=== PATIENT | female | born 1935 | race Caucasian/White ===

== ENCOUNTER 2016-06-16 14:26 | Emergency (ER) | payer MEDICARE ==
[2016-06-16 14:51] VITALS: RESP 18
[2016-06-16 16:46] LABS: CH 29.7; CHCM 33.5; HCT 42.9 % (34.0-46.0); HDW 2.56; MCH 31.2 pg (25.0-35.0); MCV 89.2 fL (80.0-100.0); Mean Platelet Volume 7.5; RBC 4.81 m/uL (3.80-5.40); RDW 13.6 % (11.5-15.5); WBC 8.7 k/uL (3.8-10.6)
[2016-06-16 16:57] LABS: ALT 24 U/L (9-52); AST 28 U/L (14-36); Alkaline Phosphatase 100 U/L (38-126); Anion Gap 10 mmol/L; Blood Urea Nitrogen 9 mg/dL (7-17); Calcium 10.5 mg/dL (8.4-10.2); Carbon Dioxide 29 mmol/L (22-30); Chloride 102 mmol/L (98-107); Glucose 94 mg/dL (74-99); Non-African American GFR(MDRD) >60 (>60 ml/min/1.73 sqM); Potassium 3.9 mmol/L (3.5-5.1); Sodium 141 mmol/L (137-145); Total Bilirubin 0.6 mg/dL (0.2-1.3); Total Protein 7.6 g/dL (6.3-8.2)
[2016-06-16 17:02] LABS: Appearance,Urine Clear (Clear); Bilirubin,Urine Negative (Negative); Glucose,Urine (UA) Negative (Negative); Ketones,Urine Negative (Negative); Leukocyte Esterase,Urine Negative (Negative); Nitrite,Urine Negative (Negative); PH, Urine 6.5 (5.0-8.0); Protein,Urine Negative (Negative); Specific Gravity,Urine 1.015 (1.001-1.035); UA Billing (MACRO vs. MICRO) CHEM; Urobilinogen,Urine <2.0 mg/dL (<2.0)
--- NOTE | 2016-06-16 17:14 | XR ---
EXAMINATION TYPE: XR Hip LT and AP Pelvis DATE OF EXAM: 06/16/2016 5:04 PM COMPARISON: NONE HISTORY: Hip pain TECHNIQUE: A single AP view of the pelvis is obtained. Two views of the left hip are obtained. FINDINGS: There is hypertrophic acetabular spurring. The pelvic ring is intact. I see no fracture no r dislocation. Sacroiliac joints appear normal. There is a right hip prosthesis. 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 No fracture seen. Spondylosis noted at L4-5.
--- NOTE | 2016-06-16 17:44 | CT ---
EXAMINATION TYPE: CT abdomen pelvis w con DATE OF EXAM: 06/16/2016 5:35 PM COMPARISON: NONE HISTORY: Left sided back and hip pain CT DLP: 410.7 mGycm Automated exposure control for dose reduction was used. TECHNIQUE: Helical acquisition of images was performed from the lung bases through the pelvis. CONTRAST: Performed without Oral Contrast and with IV Contrast, patient injected with 100 mL of Omnipaque 300. FINDINGS: The lung bases are clear of consolidation. There is mild linear density at the posterior lung bases c onsistent with scarring and subsegmental atelectasis. There is no pleural effusion. There are numerou s calcified splenic granulomata. There is no pancreatic mass. Liver shows no focal defect. Gallbladde r appears normal. Bile ducts are not dilated. There is a fusiform lower abdominal aortic aneurysm ext ending below the renal arteries that measures up to 5 cm in diameter. There is mural thrombus that me asures up to 1.5 cm in thickness. Kidneys show satisfactory contrast opacification. There is no hydronephrosis. There is no retroperito ray adenopathy. There is no ascites. There is atherosclerotic vascular calcification. Appendix is no t definitely seen. There is no sign of appendicitis. There is no ascites. There is metal artifact fro m right hip prosthesis. Bladder distends smoothly. There is no sign of a pelvic mass. I see no focal bone destruction. There is a 2 cm inguinal hernia on the left side that contains fat. There is moderate spondylosis at L4-5. There is spinal stenosis at L4-5 L3-4. 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 ATHEROSCLEROTIC VASCULAR DISEASE. SPINAL STENOSIS AT L3-4 AND L4-5. MILD SCARRING AND SUBSEGMENTAL ATELECTASIS AT THE LUNG BASES. 2 CM LEFT INGUINAL HERNIA CONTAINS OMENTAL FAT.
--- NOTE | 2016-06-16 17:53 | ED ---
General Adult HPI - General Chief complaint: Extremity Injury, Lower Stated complaint: flank & hip pain Time Seen by Provider: 06/16/16 15:55 Source: patient Mode of arrival: wheelchair Limitations: no limitations - History of Present Illness Initial comments: Patient complains of pain in the left hip. She is unaware of any specific injuries. The pain is worse when she moves the hip. She denies any intravenous drug abuse or other drug abuse. Patient has no chest or back pain. She has no shortness of breath. She has no nausea or vomiting. She also complains of pain in the left lower quadrant of her abdomen. Nothing makes it better or worse. It has remained steady since it began. It to get progressively worse at first. She has no nausea or vomiting. She has no blood in the stool. She has no black or tarry stool. She has taken no medication for the symptoms. She was not doing anything when she began to feel as well. - Related Data Home Medications Medication Instructions Recorded Confirmed Albuterol Inhaler [Ventolin Hfa 1 puff INHALATION RT-Q6H PRN 03/11/14 06/16/16 Inhaler] Budesonide-Formot 160-4.5 Mcg 2 puff INHALATION RT-DAILY 03/11/14 06/16/16 [Symbicort 160-4.5 Mcg Inhaler] Cholecalciferol [Vitamin D3] 1,000 unit PO DAILY 10/26/15 06/16/16 Ascorbic Acid [Vitamin C] 500 mg PO DAILY 06/16/16 06/16/16 Donepezil [Aricept] 10 mg PO DAILY 06/16/16 06/16/16 Allergies Allergy/AdvReac Type Severity Reaction Status Date / Time No Known Allergies Allergy Verified 06/16/16 16:59 Review of Systems ROS Statement: Those systems with pertinent positive or pertinent negative responses have been documented in the HPI. ROS Other: All systems not noted in ROS Statement are negative. Past Medical History Past Medical History: COPD, Hypertension History of Any Multi-Drug Resistant Organisms: None Reported Past Surgical History: Orthopedic Surgery Additional Past Surgical History / Comment(s): neck surgery, hip, arm, knee Past Psychological History: No Psychological Hx Reported Smoking Status: Former smoker Past Alcohol Use History: Rare Past Drug Use History: None Reported General Exam Limitations: no limitations General appearance: alert, in no apparent distress Head exam: Present: atraumatic, normocephalic, normal inspection Eye exam: Present: normal appearance, PERRL, EOMI. Absent: scleral icterus, conjunctival injection, periorbital swelling ENT exam: Present: normal exam, mucous membranes moist Neck exam: Present: normal inspection. Absent: tenderness, meningismus, lymphadenopathy Respiratory exam: Present: normal lung sounds bilaterally. Absent: respiratory distress, wheezes, rales, rhonchi, stridor Cardiovascular Exam: Present: regular rate, normal rhythm, normal heart sounds. Absent: systolic murmur, diastolic murmur, rubs, gallop, clicks GI/Abdominal exam: Present: soft, normal bowel sounds. Absent: distended, tenderness, guarding, rebound, rigid Extremities exam: Present: normal inspection, full ROM, normal capillary refill. Absent: tenderness, pedal edema, joint swelling, calf tenderness Back exam: Present: normal inspection Neurological exam: Present: alert, oriented X3, CN II-XII intact Psychiatric exam: Present: normal affect, normal mood Skin exam: Present: warm, dry, intact, normal color. Absent: rash Course Vital Signs 06/16/16 14:48 Temperature 98.6 F Pulse Rate 81 Respiratory 18 Rate Blood Pressure 153/82 O2 Sat by Pulse 95 Oximetry Medical Decision Making - Medical Decision Making Patient complains of left hip pain. She has normal range of motion. X-rays are negative for fracture or dislocation. There is no evidence of any infectious processes. Regarding the abdominal pain, I [facility] CAT scan. It does show incidental findings including a AAA, and hernia. However, neither these is symptomatic today and I do not believe they required emergent treatment or admission to the hospital. I did discuss all these findings with the patient and explained to her the importance of follow-up as either of these could develop into an emergency and the future. She verbalized understanding of all these instructions, need for follow-up. I instructed her to return to the emergency department immediately if she develops any proms or complaints or worsening of her symptoms. - Lab Data Result diagrams: 06/16/16 16:30 06/16/16 16:30 Lab Results 06/16/16 06/16/16 06/16/16 Range/Units 16:30 16:30 16:56 WBC 8.7 (3.8-10.6) k/uL RBC 4.81 (3.80-5.40) m/uL Hgb 15.0 (11.4-16.0) gm/dL Hct 42.9 (34.0-46.0) % MCV 89.2 (80.0-100.0) fL MCH 31.2 (25.0-35.0) pg MCHC 35.0 (31.0-37.0) g/dL RDW 13.6 (11.5-15.5) % Plt Count 312 (150-450) k/uL Sodium 141 (137-145) mmol/L Potassium 3.9 (3.5-5.1) mmol/L Chloride 102 (98-107) mmol/L Carbon Dioxide 29 (22-30) mmol/L Anion Gap 10 mmol/L BUN 9 (7-17) mg/dL Creatinine 0.72 (0.52-1.04) mg/dL Est GFR (MDRD) Af Amer >60 (>60 ml/min/1.73 sqM) Est GFR (MDRD) Non-Af >60 (>60 ml/min/1.73 sqM) Glucose 94 (74-99) mg/dL Calcium 10.5 H (8.4-10.2) mg/dL Total Bilirubin 0.6 (0.2-1.3) mg/dL AST 28 (14-36) U/L ALT 24 (9-52) U/L Alkaline Phosphatase 100 (38-126) U/L Total Protein 7.6 (6.3-8.2) g/dL Albumin 4.5 (3.5-5.0) g/dL Urine Color Yellow Urine Appearance Clear (Clear) Urine pH 6.5 (5.0-8.0) Ur Specific [place] 1.015 (1.001-1.035) Urine Protein Negative (Negative) Urine Glucose (UA) Negative (Negative) Urine Ketones Negative (Negative) Urine Blood Negative (Negative) Urine Nitrite Negative (Negative) Urine Bilirubin Negative (Negative) Urine Urobilinogen <2.0 (<2.0) mg/dL Ur Leukocyte Esterase Negative (Negative) Disposition Clinical Impression: Musculoskeletal pain Disposition: HOME SELF-CARE Condition: Good Instructions: Musculoskeletal Pain (ED) Time of Disposition: 17:52
[2016-06-16 18:13] VITALS: BP 177/77; PULSE 74; TEMP 98.2
== END 2016-06-16 18:13 | disposition home or self-care (01) ==
LOC: EC 14:26
DX: M25.552 Pain in left hip (principal); R10.32 Left lower quadrant pain; J44.9 Chronic obstructive pulmonary disease, unspecified; Z79.51 Long term (current) use of inhaled steroids; Z79.899 Other long term (current) drug therapy; Z87.891 Personal history of nicotine dependence
CPT/HCPCS: 36415; 80053; 85027; 81003; 73502; 74177; 99284; Q9967

== ENCOUNTER → 2016-08-18 | Outpatient (CLI) | payer MEDICARE ==
--- NOTE | 2016-08-18 12:00 | XR ---
EXAMINATION TYPE: XR chest 2V DATE OF EXAM: 08/18/2016 HISTORY: R05 cough. REFERENCE: Previous study dated 11/03/2015. FINDINGS: The lungs are overinflated but clear. Pleural space are clear. The heart is not enlarged. IMPRESSION: COPD.
== END | disposition home or self-care (01) ==
LOC: RADXRMAIN 11:28
PROVIDERS: ATTEND Internal Medicine
DX: J44.9 Chronic obstructive pulmonary disease, unspecified (principal)
CPT/HCPCS: 71020

== ENCOUNTER → 2018-09-04 | Outpatient (CLI) | payer MEDICARE ==
--- NOTE | 2018-09-04 14:28 | NM ---
EXAMINATION TYPE: NM bone 3 phase DATE OF EXAM: 09/04/2018 COMPARISON: None HISTORY: Right hip pain Triple phase bone scintigraphy was performed following the injection of 25.1 mCi Tc 99m MDP. Immedia te images and 5 hours post injection images acquired. FINDINGS: There is symmetric perfusion to the hips bilaterally. There is some increased soft tissue uptake doroteo cent to the right hip. There is mild increased intensity and uptake involving the femoral component o f the prostheses. Abnormal uptake involving the left hip joint likely post arthritic. IMPRESSION: 1. Postsurgical change involving the right hip. There is mild intensity increased uptake involving th e femoral component of the prostheses which may be postsurgical. Loosening not excluded correlate cli nically.
== END | disposition home or self-care (01) ==
LOC: RADNMMAIN 07:28
PROVIDERS: ATTEND Orthopaedic Surgery
DX: M79.661 Pain in right lower leg (principal); Z96.641 Presence of right artificial hip joint
CPT/HCPCS: 78315; A9503

== ENCOUNTER 2019-07-23 07:36 | Emergency (ER) | payer MEDICARE ==
[2019-07-23 08:14] LABS: Basophils # (A) 0.1 k/uL (0-0.2); Basophils % (A) 1 %; Eosinophils # (A) 0.2 k/uL (0-0.7); Eosinophils % (A) 3 %; HCT 39.8 % (34.0-46.0); Lymphocytes # (A) 1.2 k/uL (1.0-4.8); Lymphocytes % (A) 15 %; MCH 30.5 pg (25.0-35.0); MCHC 32.7 g/dL (31.0-37.0); MCV 93.3 fL (80.0-100.0); Mean Platelet Volume 7.8; Monocytes # (A) 0.3 k/uL (0-1.0); Monocytes % (A) 4 %; Neutrophils # (A) 5.8 k/uL (1.3-7.7); Neutrophils % (A) 76 %; Platelet Count 164 k/uL (150-450); RBC 4.27 m/uL (3.80-5.40); RDW 13.2 % (11.5-15.5); WBC 7.7 k/uL (3.8-10.6)
[2019-07-23 08:15] LABS: Albumin 3.8 g/dL (3.5-5.0); Potassium 3.7 mmol/L (3.5-5.1); Total Bilirubin 0.5 mg/dL (0.2-1.3); Total Protein 6.8 g/dL (6.3-8.2)
[2019-07-23 08:16] LABS: Calcium 9.6 mg/dL (8.4-10.2)
[2019-07-23 08:26] LABS: Appearance,Urine Clear (Clear); Bilirubin,Urine Negative (Negative); Blood,Urine Negative (Negative); Color,Urine Light Yellow; Glucose,Urine (UA) Negative (Negative); Ketones,Urine Negative (Negative); Leukocyte Esterase,Urine Negative (Negative); Nitrite,Urine Negative (Negative); Protein,Urine Negative (Negative); Specific Gravity,Urine 1.005 (1.001-1.035); Urobilinogen,Urine <2.0 mg/dL (<2.0)
--- NOTE | 2019-07-23 08:44 | XR ---
EXAMINATION TYPE: XR chest 2V DATE OF EXAM: 07/23/2019 COMPARISON: 09/06/2016 HISTORY: Shortness of breath TECHNIQUE: Frontal and lateral views of the chest are obtained. FINDINGS: Scattered senescent parenchymal changes noted. Hyperinflation compatible with COPD. No evidence for infiltrate. No evidence for atelectasis. Heart size is stable. Mediastinal structures are stable and grossly unremarkable. No evidence for hilar prominence. Degenerative changes dorsal spine. IMPRESSION: 1. No evidence for acute pulmonary disease.
--- NOTE | 2019-07-23 08:54 | ED ---
Altered Mental Status HPI - General Chief Complaint: Altered Mental Status Stated Complaint: Altered Mental Time Seen by Provider: 07/23/19 07:36 Source: family, police, EMS, RN notes reviewed Mode of arrival: EMS Limitations: altered mental status - History of Present Illness Initial Comments: This 83-year-old female history dementia who was found wandering [place] a local [place] by a passerby she is brought here by EMS at the request of police for evaluation patient was found have a history of dementia she was out walking her dog apparently. No trauma reported no fevers chills nausea vomiting sweats or other symptoms reported at this time. The patient was brought to her she department she was awake alert though pleasantly confused. Her son later came to the emergency department and states that this is normal for his mother except for the wandering part. She has had a chronic cough but no other symptoms. MD Complaint: altered mental status - Related Data Home Medications Medication Instructions Recorded Confirmed Albuterol Inhaler (Mhu) [Ventolin 1 puff INHALATION RT-Q6H PRN 03/11/14 06/16/16 Hfa Inhaler (Mhu)] Budesonide-Formot 160-4.5 Mcg 2 puff INHALATION RT-DAILY 03/11/14 06/16/16 [Symbicort 160-4.5 Mcg Inhaler] Cholecalciferol [Vitamin D3 (25 1,000 unit PO DAILY 10/26/15 06/16/16 Mcg = 1000 Iu)] Ascorbic Acid [Vitamin C] 500 mg PO DAILY 06/16/16 06/16/16 Donepezil [Aricept] 10 mg PO DAILY 06/16/16 06/16/16 Allergies Allergy/AdvReac Type Severity Reaction Status Date / Time No Known Allergies Allergy Verified 06/16/16 16:59 Review of Systems ROS Statement: Those systems with pertinent positive or pertinent negative responses have been documented in the HPI. ROS Other: All systems not noted in ROS Statement are negative. Past Medical History Past Medical History: COPD, Dementia, Hypertension History of Any Multi-Drug Resistant Organisms: None Reported Past Surgical History: Orthopedic Surgery Additional Past Surgical History / Comment(s): neck surgery, hip, arm, knee Past Psychological History: No Psychological Hx Reported Smoking Status: Former smoker Past Alcohol Use History: Rare Past Drug Use History: None Reported General Exam - General Exam Comments Initial Comments: This a well-developed sec appearing female who is awake alert oriented times one Limitations: altered mental status General appearance: alert, in no apparent distress Head exam: Present: atraumatic, normocephalic, normal inspection Eye exam: Present: normal appearance, PERRL, EOMI. Absent: scleral icterus, conjunctival injection, periorbital swelling ENT exam: Present: normal exam, mucous membranes moist Neck exam: Present: normal inspection. Absent: tenderness, meningismus, lymphadenopathy Respiratory exam: Present: normal lung sounds bilaterally. Absent: respiratory distress, wheezes, rales, rhonchi, stridor Cardiovascular Exam: Present: regular rate, normal rhythm, normal heart sounds. Absent: systolic murmur, diastolic murmur, rubs, gallop, clicks GI/Abdominal exam: Present: soft, normal bowel sounds. Absent: distended, ten derness, guarding, rebound, rigid Extremities exam: Present: normal inspection, full ROM, normal capillary refill. Absent: tenderness, pedal edema, joint swelling, calf tenderness Back exam: Present: normal inspection Neurological exam: Present: alert, altered, CN II-XII intact Psychiatric exam: Present: normal affect, normal mood Skin exam: Present: warm, dry, intact, normal color. Absent: rash Course Vital Signs 07/23/19 07/23/19 07:43 08:01 Temperature 98.4 F Pulse Rate 74 Respiratory 16 Rate Blood Pressure 198/100 166/96 O2 Sat by Pulse 96 Oximetry Medical Decision Making - Medical Decision Making Patient is awake alert oriented times one normal per the patient's son patient be discharged with follow-up with her doctor. - Lab Data Result diagrams: 07/23/19 08:00 07/23/19 08:00 Lab Results 07/23/19 07/23/19 07/23/19 Range/Units 08:00 08:00 08:00 WBC 7.7 (3.8-10.6) k/uL RBC 4.27 (3.80-5.40) m/uL Hgb 13.0 (11.4-16.0) gm/dL Hct 39.8 (34.0-46.0) % MCV 93.3 (80.0-100.0) fL MCH 30.5 (25.0-35.0) pg MCHC 32.7 (31.0-37.0) g/dL RDW 13.2 (11.5-15.5) % Plt Count 164 (150-450) k/uL Neutrophils % 76 % Lymphocytes % 15 % Monocytes % 4 % Eosinophils % 3 % Basophils % 1 % Neutrophils # 5.8 (1.3-7.7) k/uL Lymphocytes # 1.2 (1.0-4.8) k/uL Monocytes # 0.3 (0-1.0) k/uL Eosinophils # 0.2 (0-0.7) k/uL Basophils # 0.1 (0-0.2) k/uL Sodium 136 L (137-145) mmol/L Potassium 3.7 (3.5-5.1) mmol/L Chloride 102 (98-107) mmol/L Carbon Dioxide 26 (22-30) mmol/L Anion Gap 8 mmol/L BUN 16 (7-17) mg/dL Creatinine 0.89 (0.52-1.04) mg/dL Est GFR (CKD-EPI)AfAm 70 (>60 ml/min/1.73 sqM) Est GFR (CKD-EPI)NonAf 61 (>60 ml/min/1.73 sqM) Glucose 120 H (74-99) mg/dL Calcium 9.6 (8.4-10.2) mg/dL Magnesium 2.0 (1.6-2.3) mg/dL Total Bilirubin 0.5 (0.2-1.3) mg/dL AST 21 (14-36) U/L ALT 12 (4-34) U/L Alkaline Phosphatase 99 (38-126) U/L Creatine Kinase 30 (30-135) U/L Troponin I <0.012 (0.000-0.034) ng/mL Total Protein 6.8 (6.3-8.2) g/dL Albumin 3.8 (3.5-5.0) g/dL Lipase 197 (23-300) U/L Urine Color Urine Appearance (Clear) Urine pH (5.0-8.0) Ur Specific [place] (1.001-1.035) Urine Protein (Negative) Urine Glucose (UA) (Negative) Urine Ketones (Negative) Urine Blood (Negative) Urine Nitrite (Negative) Urine Bilirubin (Negative) Urine Urobilinogen (<2.0) mg/dL Ur Leukocyte Esterase (Negative) 07/23/19 Range/Units 08:13 WBC (3.8-10.6) k/uL RBC (3.80-5.40) m/uL Hgb (11.4-16.0) gm/dL Hct (34.0-46.0) % MCV (80.0-100.0) fL MCH (25.0-35.0) pg MCHC (31.0-37.0) g/dL RDW (11.5-15.5) % Plt Count (150-450) k/uL Neutrophils % % Lymphocytes % % Monocytes % % Eosinophils % % Basophils % % Neutrophils # (1.3-7.7) k/uL Lymphocytes # (1.0-4.8) k/uL Monocytes # (0-1.0) k/uL Eosinophils # (0-0.7) k/uL Basophils # (0-0.2) k/uL Sodium (137-145) mmol/L Potassium (3.5-5.1) mmol/L Chloride (98-107) mmol/L Carbon Dioxide (22-30) mmol/L Anion Gap mmol/L BUN (7-17) mg/dL Creatinine (0.52-1.04) mg/dL Est GFR (CKD-EPI)AfAm (>60 ml/min/1.73 sqM) Est GFR (CKD-EPI)NonAf (>60 ml/min/1.73 sqM) Glucose (74-99) mg/dL Calcium (8.4-10.2) mg/dL Magnesium (1.6-2.3) mg/dL Total Bilirubin (0.2-1.3) mg/dL AST (14-36) U/L ALT (4-34) U/L Alkaline Phosphatase (38-126) U/L Creatine Kinase (30-135) U/L Troponin I (0.000-0.034) ng/mL Total Protein (6.3-8.2) g/dL Albumin (3.5-5.0) g/dL Lipase (23-300) U/L Urine Color Light Yellow Urine Appearance Clear (Clear) Urine pH 7.0 (5.0-8.0) Ur Specific [place] 1.005 (1.001-1.035) Urine Protein Negative (Negative) Urine Glucose (UA) Negative (Negative) Urine Ketones Negative (Negative) Urine Blood Negative (Negative) Urine Nitrite Negative (Negative) Urine Bilirubin Negative (Negative) Urine Urobilinogen <2.0 (<2.0) mg/dL Ur Leukocyte Esterase Negative (Negative) - EKG Data -: EKG Interpreted by Me EKG shows normal: sinus rhythm EKG Comments: Sinus rhythm a 69 150 to QRS 128 QT since QTC 434/465 with exodeviation right bundle-branch block no acute ST-T wave changes - Radiology Data Radiology results: report reviewed, image reviewed Disposition Clinical Impression: Dementia Disposition: HOME SELF-CARE Condition: Good Instructions (If sedation given, give patient instructions): Dementia (ED) Is patient prescribed a controlled substance at d/c from ED?: No Referrals: Rosa Bermudez MD [Primary Care Provider] - 1-2 days
[2019-07-23 09:07] VITALS: BP 170/89; PULSE 77; RESP 18; TEMP 98
== END 2019-07-23 09:07 | disposition home or self-care (01) ==
LOC: EC 07:36
DX: F03.90 Unspecified dementia, unspecified severity, without behavioral disturbance, psychotic disturbance, mood disturbance, and anxiety (principal); J44.9 Chronic obstructive pulmonary disease, unspecified; I10 Essential (primary) hypertension; Z79.51 Long term (current) use of inhaled steroids; Z79.899 Other long term (current) drug therapy; Z87.891 Personal history of nicotine dependence; Y93.K1 Activity, walking an animal
CPT/HCPCS: 36415; 71046; 80053; 81003; 82550; 83690; 83735; 84484; 85025; 93005; 99285

== ENCOUNTER 2019-09-06 18:40 | Observation (INO) | payer MEDICARE ==
[2019-09-06] MEDS ORDERED: SODIUM CHLORIDE 0.9% 500 ML 500 ML IV ONE (19:08)
[2019-09-06 19:26] LABS: Glucose,Whole Blood 98 mg/dL (75-99)
--- NOTE | 2019-09-06 19:53 | ED ---
General Adult HPI - General Chief complaint: Altered Mental Status Stated complaint: Fall/poss uti Time Seen by Provider: 09/06/19 18:54 Source: patient, family, RN notes reviewed, old records reviewed Mode of arrival: ambulatory Limitations: no limitations - History of Present Illness Initial comments: 84-year-old female history of dementia presenting for evaluation of multiple falls, worsening confusion. Patient has been hallucinating. She left the home today and had a bowel movement outside the home. She has been confused, seeing things that aren't there. She's had multiple falls and is complaining of right hip pain. This fall occurred several days ago according to the son. No reported fever. No pain complaints outside of the hip. No vomiting. No focal numbness or weakness. - Related Data Home Medications Medication Instructions Recorded Confirmed Albuterol Inhaler (Mhu) [Ventolin 1 puff INHALATION RT-Q6H PRN 03/11/14 06/16/16 Hfa Inhaler (Mhu)] Budesonide-Formot 160-4.5 Mcg 2 puff INHALATION RT-DAILY 03/11/14 06/16/16 [Symbicort 160-4.5 Mcg Inhaler] Cholecalciferol [Vitamin D3 (25 1,000 unit PO DAILY 10/26/15 06/16/16 Mcg = 1000 Iu)] Ascorbic Acid [Vitamin C] 500 mg PO DAILY 06/16/16 06/16/16 Donepezil [Aricept] 10 mg PO DAILY 06/16/16 06/16/16 Allergies Allergy/AdvReac Type Severity Reaction Status Date / Time No Known Allergies Allergy Verified 09/06/19 18:53 Review of Systems ROS Statement: Those systems with pertinent positive or pertinent negative responses have been documented in the HPI. ROS Other: All systems not noted in ROS Statement are negative. Past Medical History Past Medical History: COPD, Dementia, Hypertension History of Any Multi-Drug Resistant Organisms: None Reported Past Surgical History: Orthopedic Surgery Additional Past Surgical History / Comment(s): neck surgery, hip, arm, knee Past Psychological History: No Psychological Hx Reported Smoking Status: Former smoker Past Alcohol Use History: Rare Past Drug Use History: None Reported General Exam Limitations: no limitations General appearance: alert, in no apparent distress Head exam: Present: atraumatic, normocephalic Eye exam: Present: normal appearance, PERRL ENT exam: Present: mucous membranes dry Neck exam: Present: normal inspection. Absent: tenderness, meningismus Respiratory exam: Present: normal lung sounds bilaterally. Absent: respiratory distress, wheezes Cardiovascular Exam: Present: regular rate, normal rhythm GI/Abdominal exam: Present: soft. Absent: distended, tenderness Extremities exam: Present: other (Pain with rotation of the left lower extremity, no shortening, ) Back exam: Present: normal inspection, full ROM Neurological exam: Present: alert, oriented X3, CN II-XII intact. Absent: motor sensory deficit Psychiatric exam: Present: normal affect, normal mood Skin exam: Present: warm, dry, intact. Absent: cyanosis, diaphoretic Course Vital Signs 09/06/19 09/06/19 18:49 21:07 Temperature 97.9 F 97.5 F L Pulse Rate 80 65 Respiratory 18 17 Rate Blood Pressure 137/76 173/82 O2 Sat by Pulse 95 100 Oximetry EKG Findings - EKG Comments: EKG Findings:: EKG: Normal sinus rhythm, right bundle, left anterior fascicular block, rate of 62, VT interval 140, QRS duration 138, QTC 464. Medical Decision Making - Medical Decision Making 84 -year-old female with worsening dementia, multiple falls, confusion and hallucinations. Head CT performed, negative for intracranial hemorrhage, does show increased ventricular volume. X-rays of both the chest and pelvis are negative for any acute fracture dislocation. Patient has a normal CBC, electrolytes showing mild hypokalemia which is replaced. Given her worsening confusion, behavior and concern for patient safety she will be admitted, possible usp placement. Case discussed with Dr. Bermudez. - Lab Data Result diagrams: 09/06/19 19:58 09/06/19 19:58 Lab Results 09/06/19 09/06/19 09/06/19 Range/Units 19:23 19:58 19:58 WBC 7.8 (3.8-10.6) k/uL RBC 4.27 (3.80-5.40) m/uL Hgb 12.3 (11.4-16.0) gm/dL Hct 39.4 (34.0-46.0) % MCV 92.2 (80.0-100.0) fL MCH 28.8 (25.0-35.0) pg MCHC 31.2 (31.0-37.0) g/dL RDW 13.3 (11.5-15.5) % Plt Count 318 (150-450) k/uL Neutrophils % 50 % Lymphocytes % 39 % Monocytes % 5 % Eosinophils % 2 % Basophils % 1 % Neutrophils # 3.9 (1.3-7.7) k/uL Lymphocytes # 3.0 (1.0-4.8) k/uL Monocytes # 0.4 (0-1.0) k/uL Eosinophils # 0.2 (0-0.7) k/uL Basophils # 0.1 (0-0.2) k/uL PT 10.0 (9.0-12.0) sec INR 1.0 (<1.2) APTT 21.6 L (22.0-30.0) sec Sodium (137-145) mmol/L Potassium (3.5-5.1) mmol/L Chloride (98-107) mmol/L Carbon Dioxide (22-30) mmol/L Anion Gap mmol/L BUN (7-17) mg/dL Creatinine (0.52-1.04) mg/dL Est GFR (CKD-EPI)AfAm (>60 ml/min/1.73 sqM) Est GFR (CKD-EPI)NonAf (>60 ml/min/1.73 sqM) Glucose (74-99) mg/dL POC Glucose (mg/dL) 98 (75-99) mg/dL POC Glu Airworthiness Inspector ID Celeste Mars Calcium (8.4-10.2) mg/dL Total Bilirubin (0.2-1.3) mg/dL AST (14-36) U/L ALT (4-34) U/L Alkaline Phosphatase (38-126) U/L Total Protein (6.3-8.2) g/dL Albumin (3.5-5.0) g/dL Urine Color Urine Appearance (Clear) Urine pH (5.0-8.0) Ur Specific Gar[place] (1.001-1.035) Urine Protein (Negative) Urine Glucose (UA) (Negative) Urine Ketones (Negative) Urine Blood (Negative) Urine Nitrite (Negative) Urine Bilirubin (Negative) Urine Urobilinogen (<2.0) mg/dL Ur Leukocyte Esterase (Negative) 09/06/19 09/06/19 Range/Units 19:58 20:11 WBC (3.8-10.6) k/uL RBC (3.80-5.40) m/uL Hgb (11.4-16.0) gm/dL Hct (34.0-46.0) % MCV (80.0-100.0) fL MCH (25.0-35.0) pg MCHC (31.0-37.0) g/dL RDW (11.5-15.5) % Plt Count (150-450) k/uL Neutrophils % % Lymphocytes % % Monocytes % % Eosinophils % % Basophils % % Neutrophils # (1.3-7.7) k/uL Lymphocytes # (1.0-4.8) k/uL Monocytes # (0-1.0) k/uL Eosinophils # (0-0.7) k/uL Basophils # (0-0.2) k/uL PT (9.0-12.0) sec INR (<1.2) APTT (22.0-30.0) sec Sodium 135 L (137-145) mmol/L Potassium 3.3 L (3.5-5.1) mmol/L Chloride 96 L (98-107) mmol/L Carbon Dioxide 32 H (22-30) mmol/L Anion Gap 7 mmol/L BUN 11 (7-17) mg/dL Creatinine 0.90 (0.52-1.04) mg/dL Est GFR (CKD-EPI)AfAm 69 (>60 ml/min/1.73 sqM) Est GFR (CKD-EPI)NonAf 60 (>60 ml/min/1.73 sqM) Glucose 100 H (74-99) mg/dL POC Glucose (mg/dL) (75-99) mg/dL POC Glu Airworthiness Inspector ID Calcium 10.0 (8.4-10.2) mg/dL Total Bilirubin 0.3 (0.2-1.3) mg/dL AST 22 (14-36) U/L ALT 8 (4-34) U/L Alkaline Phosphatase 119 (38-126) U/L Total Protein 6.9 (6.3-8.2) g/dL Albumin 3.8 (3.5-5.0) g/dL Urine Color Light Yellow Urine Appearance Clear (Clear) Urine pH 6.5 (5.0-8.0) Ur Specific [place] 1.002 (1.001-1.035) Urine Protein Negative (Negative) Urine Glucose (UA) Negative (Negative) Urine Ketones Negative (Negative) Urine Blood Negative (Negative) Urine Nitrite Negative (Negative) Urine Bilirubin Negative (Negative) Urine Urobilinogen <2.0 (<2.0) mg/dL Ur Leukocyte Esterase Negative (Negative) Disposition Clinical Impression: Altered mental status, Dementia, Multiple falls Disposition: ADMITTED IP TO THIS [facility] Condition: Stable Is patient prescribed a controlled substance at d/c from ED?: No Referrals: Rosa Bermudez MD [Primary Care Provider] - 1-2 days Decision to Admit Reason: Admit from EC Decision Date: 09/06/19 Decision Time: 21:16
[2019-09-06 20:17] LABS: Basophils # (A) 0.1 k/uL (0-0.2); Basophils % (A) 1 %; Eosinophils # (A) 0.2 k/uL (0-0.7); Eosinophils % (A) 2 %; HCT 39.4 % (34.0-46.0); HGB 12.3 gm/dL (11.4-16.0); Lymphocytes % (A) 39 %; MCH 28.8 pg (25.0-35.0); MCHC 31.2 g/dL (31.0-37.0); MCV 92.2 fL (80.0-100.0); Mean Platelet Volume 7.4; Monocytes # (A) 0.4 k/uL (0-1.0); Monocytes % (A) 5 %; Neutrophils # (A) 3.9 k/uL (1.3-7.7); Neutrophils % (A) 50 %; Platelet Count 318 k/uL (150-450); RBC 4.27 m/uL (3.80-5.40); RDW 13.3 % (11.5-15.5); WBC 7.8 k/uL (3.8-10.6)
[2019-09-06 20:22] LABS: Appearance,Urine Clear (Clear); Bilirubin,Urine Negative (Negative); Blood,Urine Negative (Negative); Color,Urine Light Yellow; Glucose,Urine (UA) Negative (Negative); Ketones,Urine Negative (Negative); Leukocyte Esterase,Urine Negative (Negative); Nitrite,Urine Negative (Negative); PH, Urine 6.5 (5.0-8.0); Protein,Urine Negative (Negative); Specific Gravity,Urine 1.002 (1.001-1.035); Urobilinogen,Urine <2.0 mg/dL (<2.0)
[2019-09-06 20:27] LABS: Albumin 3.8 g/dL (3.5-5.0); Potassium 3.3 mmol/L (3.5-5.1); Total Bilirubin 0.3 mg/dL (0.2-1.3); Total Protein 6.9 g/dL (6.3-8.2)
[2019-09-06 20:42] LABS: Partial Thromboplastin Time 21.6 sec (22.0-30.0)
--- NOTE | 2019-09-06 20:48 | CT ---
EXAMINATION TYPE: CT brain wo con DATE OF EXAM: 09/06/2019 COMPARISON: 07/16/2010 HISTORY: 84-year-old female with confusion and altered mental status TECHNIQUE: Examination was done in axial plane without intravenous contrast. Coronal and sagittal r econstructions performed. CT DLP: 1091.4 mGycm Automated exposure control for dose reduction was used. FINDINGS: There is no evidence of acute intracranial hemorrhage, acute ischemic changes, mass, mass-effect, or extra-axial fluid collection. There is no effacement of cerebral sulci or basal subarachnoid cister ns. Mild hydrocephalus. Leo's ratio calculated at 0.36. There is no midline shift. Rodrigez-white matte r distinction is preserved. Atherosclerotic calcifications within the carotid siphons. Mild central cerebral atrophy. Mild perive ntricular white matter hypodensities in both cerebral hemispheres. Trace mucosal thickening ethmoid air cells. Mastoid air cells are well pneumatized. IMPRESSION: Mild ventriculomegaly likely secondary to central cerebral atrophy. Correlate to exclude a component of NPH. Mild changes of chronic small vessel ischemic disease. No acute intracranial abnormality othe rwise seen.
--- NOTE | 2019-09-06 20:50 | XR ---
EXAMINATION TYPE: XR chest 2V DATE OF EXAM: 09/06/2019 COMPARISON: 07/23/2019 HISTORY: 84-year-old female confusion, altered mental status TECHNIQUE: AP and lateral views FINDINGS: Heart upper limits of normal in size. Focal nodularity right perihilar/right suprahilar region. Inter stitial prominence appears chronic. Hyperinflation. No everton consolidation or pleural effusion. IMPRESSION: COPD and chronic appearing changes. No definite acute process. Nonemergent follow-up contrast enhanced CT recommended to exclude a pulmonary nodule at the right hil um.
--- NOTE | 2019-09-06 20:52 | XR ---
EXAMINATION TYPE: AP view pelvis and 2 views right hip DATE OF EXAM: 09/06/2019 COMPARISON: NONE HISTORY: 84-year-old female with fall and right hip pain FINDINGS: Moderate degenerative change of the left hip. Degenerative changes lower lumbar spine. Additional deg enerative some articular sclerosis and blurring at the SI joints. Post surgical changes of right apic al artery plasty. Bone acetabular cup and femoral stem components of the prosthesis appear well seate d. No periprosthetic fracture is identified. IMPRESSION: Uncomplicated appearance to the right hip total arthroplasty. No perihepatic fracture identified. Mod erate left hip OA. Degenerative changes lower lumbar spine.
[2019-09-06] MEDS ORDERED: NALOXONE 0.4 MG/ML 1 ML VIAL IV PRN (21:13)
[2019-09-06] MEDS ORDERED: ACETAMINOPHEN TAB 325 MG TAB PO PRN (21:13)
[2019-09-06] MEDS ORDERED: POTASSIUM CHLORIDE ER 20 MEQ TAB.ER PO STA (21:14)
[2019-09-06] MEDS: SODIUM CHLORIDE 0.9% 1,000 ML IV SCH (21:31)
[2019-09-07] MEDS: SODIUM CHLORIDE 0.9% 1,000 ML IV SCH (09:32)
[2019-09-07] MEDS ORDERED: Potassium Replacement Protocol 1 EACH MISC MISCELLANE PRN (12:20)
[2019-09-07] MEDS ORDERED: RX INFO: IV CONTRAST WAS GIVEN 1 EACH MISC MISCELLANE PRN (12:23)
--- NOTE | 2019-09-07 13:36 | P.HPIM ---
History of Present Illness H&P Date: 09/07/19 Nika Tanner, he is an 84-year-old female, who was brought in to [facility] emergency room by EMS, after her neighbors found her wandering in the neighborhood, per ER records patient was confused, she had a bowel movement outside her house. Patient was evaluated in the emergency room she was complaining of right hip area pain, x-ray was done and did not reveal any evidence of acute fracture, apparently patient had a fall several days prior to admission, she also has known history of advanced dementia, and history of multiple falls in the past. Past medical history is significant for history of asthma, history of Alzheimer disease with dementia, remote history of tobacco use, and remote history of DVT. Patient was seen and examined on the medical floor, she is alert confused in no apparent distress, she is complaining of pain in the right hip otherwise she denies any complaints there is no fever or chills no headache or dizziness no chest pain no shortness of breath no cough no nausea or vomiting no abdominal pain no diarrhea no blood in the stools no burning was urination no frequency or urgency and no hematuria Past Medical History Past Medical History: COPD, Dementia, Hypertension History of Any Multi-Drug Resistant Organisms: None Reported Past Surgical History: Orthopedic Surgery Additional Past Surgical History / Comment(s): neck surgery, hip, arm, knee Past Anesthesia/Blood Transfusion Reactions: No Reported Reaction Past Psychological History: No Psychological Hx Reported Smoking Status: Former smoker Past Alcohol Use History: Rare Past Drug Use History: None Reported Medications and Allergies Home Medications Medication Instructions Recorded Confirmed Type Donepezil [Aricept] 10 mg PO DAILY 06/16/16 09/06/19 History Citalopram Hydrobromide [CeleXA] 10 mg PO DAILY 09/06/19 09/06/19 History Memantine [Namenda] 10 mg PO BID 09/06/19 09/06/19 History RX: Meloxicam 15 mg PO DAILY 09/06/19 09/06/19 History Allergies Allergy/AdvReac Type Severity Reaction Status Date / Time No Known Allergies Allergy Verified 09/06/19 21:27 Physical Exam Vitals: Vital Signs Temp Pulse Pulse Resp BP BP Pulse Ox 09/07/19 12:04 97.9 F 52 L 16 138/65 95 06/20/20 05:22 98.2 F 74 20 143/84 99 09/06/19 22:53 160/76 09/06/19 22:29 98.0 F 62 16 177/91 100 09/06/19 22:00 97.5 F L 65 17 173/82 100 09/06/19 21:07 97.5 F L 65 17 173/82 100 09/06/19 18:49 97.9 F 80 18 137/76 95 Intake and Output 09/06/19 09/07/19 09/07/19 22:59 06:59 14:59 Intake Total 450 Balance 450 Intake: Intake, IV Titration 450 Amount Sodium Chloride 0.9% 1, 450 000 ml @ 75 mls/hr IV . [id number] [facility] Rx#:[id number] Other: Voiding Method Toilet # Voids 1 4 Weight 51.256 kg In general patient is alert, confused in no apparent distress HEENT head normocephalic and atraumatic Neck is supple no JVD no goiter no lymphadenopathy Chest exam reveals a few scattered rhonchi no wheezing Cardiac exam reveals regular heart sounds S1 and S2 no gallops no murmurs Abdomen is soft nontender no organomegaly was normal bowel sounds Extremity exam reveals no edema no cyanosis or clubbing Neurological exam reveals no gross focal deficit there is no significant weakness in any of the extremities, gait and speech are normal, patient denies a ny vision changes Results CBC & Chem 7: 09/06/19 19:58 09/06/19 19:58 Labs: Abnormal Lab Results - Last 24 Hours (Table) 09/06/19 09/06/19 Range/Units 19:58 19:58 APTT 21.6 L (22.0-30.0) sec Sodium 135 L (137-145) mmol/L Potassium 3.3 L (3.5-5.1) mmol/L Chloride 96 L (98-107) mmol/L Carbon Dioxide 32 H (22-30) mmol/L Glucose 100 H (74-99) mg/dL Thrombosis Risk Factor Assmnt - Choose All That Apply Any of the Below Risk Factors Present?: Yes Each Factor Represents 1 point: Abnormal pulmonary function (COPD) Other Risk Factors: Yes Each Risk Factor Represents 3 Points: Age 75 years or older Other congenital or acquired thrombophilia - If yes, enter type in comment: No Thrombosis Risk Factor Assessment Total Risk Factor Score: 4 Thrombosis Risk Factor Assessment Level: Moderate Risk Assessment and Plan Plan: 1. Acute mental status changes on top of advanced dementia, no evidence of any infectious process at this time, computed tomography scan of the brain without any acute abnormality, with possible normal pressure hydrocephalus, neurology consultation requested, patient restarted on Aricept and Namenda 2. Hypokalemia correcting 3. Chest x-ray revealing evidence of right hilar abnormality possible nodule with check computed tomography scan of the chest with contrast. 4. Likely need for placement at the skilled nursing facility, physical therapy and occupational therapy consult placed. Will follow during this admission for medical management please see orders
[2019-09-07 13:55] VITALS: BMI 18.8
--- NOTE | 2019-09-07 13:58 | CT ---
EXAMINATION TYPE: CT chest w con DATE OF EXAM: 09/07/2019 COMPARISON: Previous chest x-ray dated 09/06/2019. HISTORY: Abn CXR CT DLP: 259 mGycm Automated exposure control for dose reduction was used. CONTRAST: CT scan of the chest is performed with IV Contrast, patient injected with 100 mL of Isovue 300. FINDINGS:There is a noncalcified 4.9 mm nodule in the anterior aspect of the left lingula, best seen on image 49. No right-sided pulmonary nodule is seen. There is some scarring or atelectasis present a t the right lung base. There is dilatation of the aortic root which measures 4 cm. The proximal arch is aneurysmal measuring 3.4 cm. The proximal descending thoracic aorta is normal in caliber. At the level of the aortic hiat us, the aorta is now again aneurysmal and measures 3.5 cm. There is an incompletely visualized infrar enal abdominal aortic aneurysm measuring 4.8 cm. There is circumferential thrombus present at this le homero. There is no evidence of pulmonary embolus. There is no significant axillary, internal mammary, mediastinal or hilar adenopathy. There is no pleu ral or pericardial fluid. Heart size upper limits of normal. There is old granulomatous disease involving the spleen There is a 7.3 mm cystic lesion in the tail of pancreas. Visualized portions of the abdomen are otherwise unremarkable. IMPRESSION: 1. Left-sided pulmonary nodule. 2. Thoracic and abdominal aortic aneurysms. 3. Old granulomatous disease of the spleen. 4. 7.3 mm cystic lesion within the tail of the pancreas.
[2019-09-07] MEDS: DONEPEZIL 10 MG TAB PO SCH (14:08)
[2019-09-07] MEDS: PANTOPRAZOLE 40 MG TABLET PO SCH (14:08)
[2019-09-07] MEDS: MEMANTINE 10 MG TAB PO SCH ×2 (14:08→20:36)
[2019-09-07] MEDS: CITALOPRAM HYDROBROMIDE 10 MG TAB PO SCH (14:10)
[2019-09-07] MEDS: ENOXAPARIN 40 MG/0.4 ML SYRINGE SQ SCH (15:04)
[2019-09-07] MEDS: POTASSIUM CHLORIDE ER 20 MEQ TAB.ER PO SCH ×2 (21:47→22:24)
[2019-09-07] MEDS: LORazepam 2 MG/ML INJ IV PRN (21:48)
[2019-09-08] MEDS: SODIUM CHLORIDE 0.9% 1,000 ML IV SCH ×3 (01:35→22:06)
[2019-09-08 07:51] LABS: Basophils # (A) 0.1 k/uL (0-0.2); Basophils % (A) 2 %; Eosinophils # (A) 0.2 k/uL (0-0.7); Eosinophils % (A) 5 %; HCT 38.4 % (34.0-46.0); HGB 12.1 gm/dL (11.4-16.0); Lymphocytes # (A) 1.2 k/uL (1.0-4.8); Lymphocytes % (A) 26 %; MCH 29.4 pg (25.0-35.0); MCHC 31.4 g/dL (31.0-37.0); MCV 93.5 fL (80.0-100.0); Monocytes # (A) 0.3 k/uL (0-1.0); Monocytes % (A) 6 %; Neutrophils # (A) 2.8 k/uL (1.3-7.7); Neutrophils % (A) 59 %; Platelet Count 284 k/uL (150-450); RBC 4.11 m/uL (3.80-5.40); RDW 13.3 % (11.5-15.5); WBC 4.8 k/uL (3.8-10.6)
[2019-09-08 08:08] LABS: ALT 8 U/L (4-34); AST 20 U/L (14-36); African American GFR (CKD) >90 (>60 ml/min/1.73 sqM); Albumin 3.2 g/dL (3.5-5.0); Alkaline Phosphatase 96 U/L (38-126); Anion Gap 5 mmol/L; Blood Urea Nitrogen 10 mg/dL (7-17); Calcium 9.5 mg/dL (8.4-10.2); Carbon Dioxide 31 mmol/L (22-30); Chloride 104 mmol/L (98-107); Glucose 91 mg/dL (74-99); Non-African American GFR(CKD) 81 (>60 ml/min/1.73 sqM); Potassium 3.9 mmol/L (3.5-5.1); Sodium 140 mmol/L (137-145); Total Bilirubin 0.5 mg/dL (0.2-1.3); Total Protein 6.2 g/dL (6.3-8.2)
[2019-09-08] MEDS: CITALOPRAM HYDROBROMIDE 10 MG TAB PO SCH (10:28)
[2019-09-08] MEDS: PANTOPRAZOLE 40 MG TABLET PO SCH (10:28)
[2019-09-08] MEDS: DONEPEZIL 10 MG TAB PO SCH (10:28)
[2019-09-08] MEDS: ENOXAPARIN 40 MG/0.4 ML SYRINGE SQ SCH (10:29)
[2019-09-08] MEDS: MEMANTINE 10 MG TAB PO SCH ×2 (10:30→20:43)
--- NOTE | 2019-09-08 13:33 | P.CNNES ---
History of Present Illness Consult date: 09/08/19 Reason for Consult: mental status changes Chief complaint: acute mental status changes History of Present Illness: The patient is an 84-year-old female who is seen in neurologic consultation on September 08, 2019, via teleneurology. History is obtained entirely from the chart as the patient is unable to provide a history. Apparently the patient was found by her neighbors wandering around, confused. She reportedly had fallen recently. According to the patient, she lives with her son. The patient denies memory difficulties. She does not know why she is in the hospital. Past Medical History Past Medical History: COPD, Dementia, Hypertension History of Any Multi-Drug Resistant Organisms: None Reported Past Surgical History: Orthopedic Surgery Additional Past Surgical History / Comment(s): neck surgery, hip, arm, knee Past Anesthesia/Blood Transfusion Reactions: No Reported Reaction Past Psychological History: No Psychological Hx Reported Smoking Status: Former smoker Past Alcohol Use History: Rare Past Drug Use History: None Reported Medications and Allergies Home Medications Medication Instructions Recorded Confirmed Type Donepezil [Aricept] 10 mg PO DAILY 06/16/16 09/06/19 History Citalopram Hydrobromide [CeleXA] 10 mg PO DAILY 09/06/19 09/06/19 History Meloxicam 15 mg PO DAILY 09/06/19 09/06/19 History Memantine [Namenda] 10 mg PO BID 09/06/19 09/06/19 History Allergies Allergy/AdvReac Type Severity Reaction Status Date / Time No Known Allergies Allergy Verified 09/06/19 21:27 Physical Examination - Vital Signs Vital Signs: Vital Signs Temp Pulse Resp BP Pulse Ox 09/08/19 05:48 97.9 F 79 16 170/83 93 L 09/07/19 20:46 98.3 F 61 16 172/76 94 L 09/07/19 12:04 97.9 F 52 L 16 138/65 95 Intake and Output 09/07/19 09/08/19 09/08/19 22:59 06:59 14:59 Other: Voiding Method Toilet # Voids 1 2 Gen.: The patient is reclining in the bed. She is well-nourished, well- developed and in no acute distress. HEENT: Head is atraumatic, normocephalic. Fundus not visualized. There is no scleral icterus. Mucous membranes are moist. Heart: Irregular without murmur Lungs: Clear to auscultation Extremities: Decreased range of motion of the right lower extremity secondary to pain Neurological examination Mental status: The patient is awake and alert. Her speech is clear. She tells me that her name is "Nika Lazcano". She is able to tell me the day and month of her . She is unable to tell me the year. When I ask her the year of her , she says "March". The patient is not oriented to the current year. In regards to Her age, she says "9 something". Cranial nerves: Pupils are equal, round and reactive to light. Visual yousif are full to threat. Extraocular movements are intact. The patient has difficulty with visual tracking. Facial sensation is grossly intact. There is no facial asymmetry. Hearing is grossly intact. Uvula and palate are midline. Shoulder shrug is diminished on the right. Tongue protrudes midline. Motor: Upper extremity strength is 5/5. The patient is able to lift each leg off of the bed and hold it for 5 seconds. Coordination: Finger to nose and rapid alternating movements are intact. Deep tendon reflexes: 2+/4+ at the right biceps. Other reflexes are absent. Sensation: Grossly intact to light touch Results - Laboratory Findings CBC and BMP: 09/08/19 07:15 09/08/19 07:15 Abnormal Lab Findings: Abnormal Labs 09/06/19 09/06/19 09/08/19 19:58 19:58 07:15 APTT 21.6 L Sodium 135 L Potassium 3.3 L Chloride 96 L Carbon Dioxide 32 H 31 H Glucose 100 H Total Protein 6.2 L Albumin 3.2 L Assessment and Plan Assessment: 1. Acute mental status change-once the patient was out of her normal environment, likely her cognition worsened as is typical of dementia 2. I agree there is no evidence of infection Plan: 1. Consider placement of this patient into a more secure living situation, so she is not able to wander and potentially get hurt 2. Agree with Deana Time with Patient: Greater than 30 (spent 45 minutes with the patient via teleneurology)
--- NOTE | 2019-09-08 14:55 | P.PN ---
Subjective Progress Note Date: 09/08/19 Nika Tanner, he is an 84-year-old female, who was brought in to [facility] emergency room by EMS, after her neighbors found her wandering in the neighborhood, per ER records patient was confused, she had a bowel movement outside her house. Patient was evaluated in the emergency room she was complaining of right hip area pain, x-ray was done and did not reveal any evidence of acute fracture, apparently patient had a fall several days prior to admission, she also has known history of advanced dementia, and history of multiple falls in the past. Past medical history is significant for history of asthma, history of Alzheimer disease with dementia, remote history of tobacco use, and remote history of DVT. Patient was seen and examined on the medical floor, she is alert confused in no apparent distress, she is complaining of pain in the right hip otherwise she denies any complaints there is no fever or chills no headache or dizziness no chest pain no shortness of breath no cough no nausea or vomiting no abdominal pain no diarrhea no blood in the stools no burning was urination no frequency or urgency and no hematuria On 09/08/2019 patient was seen and examined on the medical floor she is alert and oriented 3 in no apparent distress there is no fever or chills no headache or dizziness no chest pain no shortness of breath no cough no nausea or vomiting no abdominal pain no diarrhea no burning was urination no frequency or urgency and no hematuria son is at the bedside case was discussed in detail with him Objective - Vital Signs Vital signs: Vital Signs Temp 97.9 F 09/08/19 11:28 Pulse 80 09/08/19 11:28 Resp 16 09/08/19 11:28 BP 149/76 09/08/19 11:28 Pulse Ox 93 L 09/08/19 11:28 Intake & Output 09/07/19 09/08/19 09/08/19 18:59 06:59 18:59 Intake Total 600 Balance 600 Weight 51.256 kg Intake: Intake, IV Titration 600 Amount Sodium Chloride 0.9% 1, 600 000 ml @ 75 mls/hr IV . [id number] [facility] Rx#:[id number] Other: Voiding Method Toilet Toilet # Voids 2 - Exam In general patient is alert, confused in no apparent distress HEENT head normocephalic and atraumatic Neck is supple no JVD no goiter no lymphadenopathy Chest exam reveals a few scattered rhonchi no wheezing Cardiac exam reveals regular heart sounds S1 and S2 no gallops no murmurs Abdomen is soft nontender no organomegaly was normal bowel sounds Extremity exam reveals no edema no cyanosis or clubbing Neurological exam reveals no gross focal deficit there is no significant weakness in any of the extremities, gait and speech are normal, patient denies any vision changes - Labs CBC & Chem 7: 09/08/19 07:15 09/08/19 07:15 Labs: Abnormal Lab Results - Last 24 Hours (Table) 09/08/19 Range/Units 07:15 Carbon Dioxide 31 H (22-30) mmol/L Total Protein 6.2 L (6.3-8.2) g/dL Albumin 3.2 L (3.5-5.0) g/dL Assessment and Plan Plan: 1. Acute mental status changes on top of advanced dementia, no evidence of any infectious process at this time, computed tomography scan of the brain without any acute abnormality, with possible normal pressure hydrocephalus, neurology consultation requested, patient restarted on Aricept and Namenda 2. Hypokalemia correcting 3. Chest x-ray revealing evidence of right hilar abnormality possible nodule with check computed tomography scan of the chest with contrast. 4. Likely need for placement at the alf facility, physical therapy and occupational therapy consult placed. Will follow during this admission for medical management please see orders
--- NOTE | 2019-09-08 14:58 | P.PN ---
Progress Note - Text Progress Note Date: 09/08/19 Records for family meeting: Date of the meeting 09/08/2019 Time of the meeting 12:15 PM Present at the meeting myself and the son of patient Sujit Zayas During this meeting case was discussed in details, patient's son brought up events from the last 2 month about patient confusion and history of fall Regulation regarding detention placement and the role of Medicare and Medicaid discussed Patient son seems to understand patient's condition and her options at the time of discharge
[2019-09-08] MEDS: amLODIPine 5 MG TAB PO SCH (22:05)
[2019-09-08] MEDS: LORazepam 2 MG/ML INJ IV PRN (23:42)
[2019-09-09] MEDS: CITALOPRAM HYDROBROMIDE 10 MG TAB PO SCH (08:46)
[2019-09-09] MEDS: PANTOPRAZOLE 40 MG TABLET PO SCH (08:46)
[2019-09-09] MEDS: DONEPEZIL 10 MG TAB PO SCH (08:46)
[2019-09-09] MEDS: amLODIPine 5 MG TAB PO SCH (08:46)
[2019-09-09] MEDS: ENOXAPARIN 40 MG/0.4 ML SYRINGE SQ SCH (08:46)
[2019-09-09] MEDS: MEMANTINE 10 MG TAB PO SCH ×2 (08:46→20:36)
[2019-09-09] MEDS: SODIUM CHLORIDE 0.9% 1,000 ML IV SCH (10:38)
--- NOTE | 2019-09-09 19:47 | P.PN ---
Subjective Progress Note Date: 09/09/19 Nika Tanner, he is an 84-year-old female, who was brought in to [facility] emergency room by EMS, after her neighbors found her wandering in the neighborhood, per ER records patient was confused, she had a bowel movement outside her house. Patient was evaluated in the emergency room she was complaining of right hip area pain, x-ray was done and did not reveal any evidence of acute fracture, apparently patient had a fall several days prior to admission, she also has known history of advanced dementia, and history of multiple falls in the past. Past medical history is significant for history of asthma, history of Alzheimer disease with dementia, remote history of tobacco use, and remote history of DVT. Patient was seen and examined on the medical floor, she is alert confused in no apparent distress, she is complaining of pain in the right hip otherwise she denies any complaints there is no fever or chills no headache or dizziness no chest pain no shortness of breath no cough no nausea or vomiting no abdominal pain no diarrhea no blood in the stools no burning was urination no frequency or urgency and no hematuria On 09/08/2019 patient was seen and examined on the medical floor she is alert, confused in no apparent distress there is no fever or chills no headache or dizziness no chest pain no shortness of breath no cough no nausea or vomiting no abdominal pain no diarrhea no burning was urination no frequency or urgency and no hematuria son is at the bedside case was discussed in detail with him. On 09/09/2019 patient was seen and examined on the medical floor she is alert confused in no apparent distress there is no fever or chills no headache or dizziness no chest pain no shortness of breath no cough no nausea or vomiting no abdominal pain no diarrhea no burning with urination no frequency or urgency no hematuria. Patient has episodes of agitation, awaiting transfer to a halfway Objective - Vital Signs Vital signs: Vital Signs Temp 97.4 F L 09/09/19 14:06 Pulse 82 09/09/19 14:06 Resp 17 09/09/19 14:06 BP 133/82 09/09/19 14:06 Pulse Ox 94 L 09/09/19 14:06 Intake & Output 09/09/19 09/09/19 09/10/19 06:59 18:59 06:59 Intake Total 450 Balance 450 Intake: Oral 450 Other: Voiding Method Toilet # Voids 6 3 # Bowel Movements 1 2 - Exam In general patient is alert, confused in no apparent distress HEENT head normocephalic and atraumatic Neck is supple no JVD no goiter no lymphadenopathy Chest exam reveals a few scattered rhonchi no wheezing Cardiac exam reveals regular heart sounds S1 and S2 no gallops no murmurs Abdomen is soft nontender no organomegaly was normal bowel sounds Extremity exam reveals no edema no cyanosis or clubbing Neurological exam reveals no gross focal deficit there is no significant weakness in any of the extremities, gait and speech are normal, patient denies any vision changes - Labs CBC & Chem 7: 09/08/19 07:15 09/08/19 07:15 Assessment and Plan Plan: 1. Acute mental status changes on top of advanced dementia, no evidence of any infectious process at this time, computed tomography scan of the brain without any acute abnormality, with possible normal pressure hydrocephalus, neurology consultation requested, patient restarted on Aricept and Namenda 2. Hypokalemia correcting 3. Chest x-ray revealing evidence of right hilar abnormality possible nodule with check computed tomography scan of the chest with contrast. 4. Likely need for placement at the halfway facility, physical therapy and occupational therapy consult placed. Will follow during this admission for medical management please see orders
[2019-09-09] MEDS: LORazepam 2 MG/ML INJ IV PRN (20:35)
[2019-09-10] MEDS: LORazepam 2 MG/ML INJ IV PRN (00:43)
[2019-09-10 06:04] VITALS: BP 186/99; PULSE 72; RESP 20; TEMP 97.7
[2019-09-10] MEDS: SODIUM CHLORIDE 0.9% 1,000 ML IV SCH ×2 (06:37→09:47)
[2019-09-10] MEDS: CITALOPRAM HYDROBROMIDE 10 MG TAB PO SCH (09:46)
[2019-09-10] MEDS: DONEPEZIL 10 MG TAB PO SCH (09:46)
[2019-09-10] MEDS: PANTOPRAZOLE 40 MG TABLET PO SCH (09:47)
[2019-09-10] MEDS: amLODIPine 5 MG TAB PO SCH (09:47)
[2019-09-10] MEDS: MEMANTINE 10 MG TAB PO SCH (09:47)
[2019-09-10] MEDS: ENOXAPARIN 40 MG/0.4 ML SYRINGE SQ SCH (09:47)
--- NOTE | 2019-09-10 14:24 | P.DS ---
Providers Date of admission: 09/08/19 09:34 Expected date of discharge: 09/10/19 Attending physician: Rosa Bermudez Consults: 09/07/19 12:22 Consult Physician Routine Consulting Provider: Horacio Cummins Consult Reason/Comments: mental status changes Do you want consulting provider notified?: Yes Primary care physician: Rosa Lara [facility] Course: Diagnoses on discharge: 1. Acute mental status changes on top of advanced dementia, no evidence of any infectious process at this time, computed tomography scan of the brain without any acute abnormality, with possible normal pressure hydrocephalus, neurology consultation requested, patient restarted on Aricept and Namenda 2. Hypokalemia correcting 3. Chest x-ray revealing evidence of right hilar abnormality possible nodule with check computed tomography scan of the chest with contrast. 4. Likely need for placement at the [facility] facility, physical therapy and occupational therapy consult placed. Hospital course: Nika Tanner, he is an 84-year-old female, who was brought in to [facility] emergency room by EMS, after her neighbors found her wandering in the neighborhood, per ER records patient was confused, she had a bowel movement outside her house. Patient was evaluated in the emergency room she was complaining of right hip area pain, x-ray was done and did not reveal any evidence of acute fracture, apparently patient had a fall several days prior to admission, she also has known history of advanced dementia, and history of multiple falls in the past. Past medical history is significant for history of asthma, history of Alzheimer disease with dementia, remote history of tobacco use, and remote history of DVT. Patient was seen and examined on the medical floor, she is alert confused in no apparent distress, she is complaining of pain in the right hip otherwise she denies any complaints there is no fever or chills no headache or dizziness no chest pain no shortness of breath no cough no nausea or vomiting no abdominal pain no diarrhea no blood in the stools no burning was urination no frequency or urgency and no hematuria On 09/08/2019 patient was seen and examined on the medical floor she is alert, confused in no apparent distress there is no fever or chills no headache or dizziness no chest pain no shortness of breath no cough no nausea or vomiting no abdominal pain no diarrhea no burning was urination no frequency or urgency and no hematuria son is at the bedside case was discussed in detail with him. On 09/09/2019 patient was seen and examined on the medical floor she is alert confused in no apparent distress there is no fever or chills no headache or dizziness no chest pain no shortness of breath no cough no nausea or vomiting no abdominal pain no diarrhea no burning with urination no frequency or urgency no hematuria. Patient has episodes of agitation, awaiting transfer to a [facility] On 09/10/2019 patient was seen and examined on the medical floor she is alert confused in no apparent distress there is no fever or chills no headache or dizziness no chest pain no shortness of breath no cough no nausea or vomiting no abdominal pain no diarrhea and no urinary symptoms Patient Condition at Discharge: Stable Plan - Discharge Summary Discharge Rx Participant: No New Discharge Prescriptions: New amLODIPine [Norvasc] 5 mg PO DAILY tab Continue Donepezil [Aricept] 10 mg PO DAILY Memantine [Namenda] 10 mg PO BID Meloxicam 15 mg PO DAILY Citalopram Hydrobromide [CeleXA] 10 mg PO DAILY Discharge Medication List Donepezil [Aricept] 10 mg PO DAILY 06/16/16 [History] Citalopram Hydrobromide [CeleXA] 10 mg PO DAILY 09/06/19 [History] Meloxicam 15 mg PO DAILY 09/06/19 [History] Memantine [Namenda] 10 mg PO BID 09/06/19 [History] amLODIPine [Norvasc] 5 mg PO DAILY tab 09/10/19 [Rx] Follow up Appointment(s)/Referral(s): Rosa Bermudez MD [Primary Care Provider] - 1-2 days
== END 2019-09-10 17:47 ==
LOC: EC 18:40 → 5NMEDONC 21:14 → OBSVTOIN 09-08 09:34 → INTOOBSV 09-08 09:34 → UNDODISIN 09-10 17:47
PROVIDERS: ADMIT Internal Medicine; ATTEND Internal Medicine
DX: G30.9 Alzheimer's disease, unspecified (principal); F02.80 Dementia in other diseases classified elsewhere, unspecified severity, without behavioral disturbance, psychotic disturbance, mood disturbance, and anxiety; E87.6 Hypokalemia; Z03.818 Encounter for observation for suspected exposure to other biological agents ruled out; I44.4 Left anterior fascicular block; R29.6 Repeated falls; J44.9 Chronic obstructive pulmonary disease, unspecified; I10 Essential (primary) hypertension; Z98.890 Other specified postprocedural states; Z87.891 Personal history of nicotine dependence; Z86.718 Personal history of other venous thrombosis and embolism; M25.551 Pain in right hip; Z79.1 Long term (current) use of non-steroidal anti-inflammatories (NSAID); Z79.51 Long term (current) use of inhaled steroids; Z79.899 Other long term (current) drug therapy
CPT/HCPCS: 96376 ×3; 96361 ×4; 96372 ×3; 96374; 99285; 36415; 93005; 97530; 97162; 97535; 97166; 80053 ×2; 84132; 85025 ×2; 85610; 85730; 81003; 73502; 71046; 70450; 71260; G0378 ×5; U0003; J2060 ×4; J1650 ×3; Q9967; 96360

== ENCOUNTER 2019-11-13 17:35 | Emergency (ER) | payer MEDICARE, OTHER ==
[2019-11-13 17:52] VITALS: BP 157/87; PULSE 66; RESP 16; TEMP 98.5
[2019-11-13 19:23] LABS: Amphetamine Screen,Urine Not Detected (NotDetected); Barbiturate Screen,Urine Not Detected (NotDetected); Benzodiazepines Screen,Urine Detected (NotDetected); Cocaine Screen,Urine Not Detected (NotDetected); Methadone Screen, Urine Not Detected (NotDetected); Opiate Screen,Urine Not Detected (NotDetected); Oxycodone Screen, Urine Not Detected (NotDetected); Phencyclidine Screen,Urine Not Detected (NotDetected); Tricyclic Antidepressant,Urine Not Detected (NotDetected); Urn Cannabinoid Scrn Not Detected (NotDetected)
[2019-11-13] MEDS ORDERED: LORazepam 1 MG TAB PO STA (20:30)
[2019-11-13 20:33] LABS: Basophils # (A) 0.1 k/uL (0-0.2); Basophils % (A) 2 %; Eosinophils # (A) 0.4 k/uL (0-0.7); Eosinophils % (A) 6 %; HGB 12.3 gm/dL (11.4-16.0); Lymphocytes # (A) 1.6 k/uL (1.0-4.8); Lymphocytes % (A) 25 %; MCH 29.3 pg (25.0-35.0); MCHC 31.5 g/dL (31.0-37.0); MCV 93.1 fL (80.0-100.0); Mean Platelet Volume 8.4; Monocytes # (A) 0.4 k/uL (0-1.0); Monocytes % (A) 6 %; Neutrophils # (A) 3.7 k/uL (1.3-7.7); Neutrophils % (A) 59 %; Platelet Count 271 k/uL (150-450); RBC 4.19 m/uL (3.80-5.40); RDW 13.2 % (11.5-15.5); WBC 6.2 k/uL (3.8-10.6)
[2019-11-13 20:39] LABS: Calcium 10.1 mg/dL (8.4-10.2); Potassium 4.1 mmol/L (3.5-5.1); Total Bilirubin 0.3 mg/dL (0.2-1.3); Total Protein 6.8 g/dL (6.3-8.2)
--- NOTE | 2019-11-13 20:41 | ED ---
General Adult HPI - General Chief complaint: Psychiatric Symptoms Stated complaint: petition Time Seen by Provider: 11/13/19 17:42 Source: EMS, RN notes reviewed, old records reviewed Mode of arrival: EMS Limitations: physical limitation - History of Present Illness Initial comments: 84-year-old female patient who is demented at baseline presents to emergency department because she was reportedly being aggressive with staff. Patient denying any acute complaints. Systemic: Pt denies fatigue, fever/chills, rash. Pt denies weakness, night s weats, weight loss. Neuro: Pt denies headache, visual disturbances, syncope or pre-syncope. HEENT: Pt denies ocular discharge or irritation, otalgia, rhinorrhea, pharyngitis or notable lymphadenopathy. Cardiopulmonary: Pt denies chest pain, SOB, heart palpitations, dyspnea on exertion. Abdominal/GI: Pt denies abdominal pain, n/v/d. : Pt denies dysuria, burning w/ urination, frequency/urgency. Denies new onset urinary or bowel incontinence. MSK: Pt denies myalgia, loss of strength or function in extremities. Neuro: Pt denies new onset weakness, paresthesias. - Related Data Home Medications Medication Instructions Recorded Confirmed Meloxicam 15 mg PO DAILY 09/06/19 11/13/19 Memantine [Namenda] 10 mg PO BID 09/06/19 11/13/19 Citalopram Hydrobromide [CeleXA] 20 mg PO DAILY 11/13/19 11/13/19 LORazepam [Ativan] 0.5 mg PO BID@0800,1600 11/13/19 11/13/19 Losartan Potassium [Cozaar] 50 mg PO DAILY 11/13/19 11/13/19 Melatonin 5 mg PO HS 11/13/19 11/13/19 Mirtazapine 15 mg PO HS 11/13/19 11/13/19 Sennosides [Senna] 8.6 mg PO DAILY 11/13/19 11/13/19 Previous Rx's Medication Instructions Recorded amLODIPine [Norvasc] 5 mg PO DAILY tab 09/10/19 Allergies Allergy/AdvReac Type Severity Reaction Status Date / Time No Known Allergies Allergy Verified 11/13/19 19:33 Review of Systems ROS Statement: Those systems with pertinent positive or pertinent negative responses have been documented in the HPI. ROS Other: All systems not noted in ROS Statement are negative. Past Medical History Past Medical History: COPD, Dementia, Hypertension History of Any Multi-Drug Resistant Organisms: None Reported Past Surgical History: Orthopedic Surgery Additional Past Surgical History / Comment(s): neck surgery, hip, arm, knee Past Anesthesia/Blood Transfusion Reactions: No Reported Reaction Past Psychological History: No Psychological Hx Reported Smoking Status: Former smoker Past Alcohol Use History: Rare Past Drug Use History: None Reported General Exam - General Exam Comments Initial Comments: Constitutional: NAD, pleasantly demented. HEENT: NC/AT, trachea midline, neck supple, no lymphadenopathy. External ears appear normal, without discharge. Mucous membranes moist. Eyes PERRLA, EOM intact. There is no scleral icterus. No pallor noted. Cardiopulmonary: RRR, no murmurs, rubs or gallops, no JVD noted. Lungs CTAB in anterior and posterior yousif. No peripheral edema. Abdominal exam: Abdomen soft and non-distended. Abdomen non-tender to palpation in all 4 quadrants. Bowel sounds active in LLQ. No hepatosplenomegaly. No ecchymosis Neuro: CN II-XII grossly intact. No nuchal rigidity. No raccon eyes, no becerra sign, no hemotympanum. No cervical spinal tenderness. MSK: Full active ROM in upper and lower extremities, 5/5 stregnth. Limitations: physical limitation Course Vital Signs 11/13/19 17:49 Temperature 98.5 F Pulse Rate 66 Respiratory 16 Rate Blood Pressure 157/87 O2 Sat by Pulse 95 Oximetry Medical Decision Making - Medical Decision Making 84-year-old female patient who is demented at baseline presents to emergency department because she was reportedly being aggressive with staff. Patient denying any acute complaints. No signs stable, afebrile. Physical exam did not display acute pathology. Patient mildly dehydrated patient eating and drinking in room. Evaluated by psychiatric services stable for discharge. Denies suicidal or homicidal ideations. Case discussed with Dr. Pfeiffer. - Lab Data Result diagrams: 11/13/19 20:07 11/13/19 20:07 Lab Results 11/13/19 11/13/19 11/13/19 Range/Units 18:39 18:39 20:07 WBC 6.2 (3.8-10.6) k/uL RBC 4.19 (3.80-5.40) m/uL Hgb 12.3 (11.4-16.0) gm/dL Hct 39.0 (34.0-46.0) % MCV 93.1 (80.0-100.0) fL MCH 29.3 (25.0-35.0) pg MCHC 31.5 (31.0-37.0) g/dL RDW 13.2 (11.5-15.5) % Plt Count 271 (150-450) k/uL Neutrophils % 59 % Lymphocytes % 25 % Monocytes % 6 % Eosinophils % 6 % Basophils % 2 % Neutrophils # 3.7 (1.3-7.7) k/uL Lymphocytes # 1.6 (1.0-4.8) k/uL Monocytes # 0.4 (0-1.0) k/uL Eosinophils # 0.4 (0-0.7) k/uL Basophils # 0.1 (0-0.2) k/uL Sodium (137-145) mmol/L Potassium (3.5-5.1) mmol/L Chloride (98-107) mmol/L Carbon Dioxide (22-30) mmol/L Anion Gap mmol/L BUN (7-17) mg/dL Creatinine (0.52-1.04) mg/dL Est GFR (CKD-EPI)AfAm (>60 ml/min/1.73 sqM) Est GFR (CKD-EPI)NonAf (>60 ml/min/1.73 sqM) Glucose (74-99) mg/dL Calcium (8.4-10.2) mg/dL Total Bilirubin (0.2-1.3) mg/dL AST (14-36) U/L ALT (4-34) U/L Alkaline Phosphatase (38-126) U/L Total Protein (6.3-8.2) g/dL Albumin (3.5-5.0) g/dL Urine Opiates Screen Not Detected (NotDetected) Ur Oxycodone Screen Not Detected (NotDetected) Urine Methadone Screen Not Detected (NotDetected) Ur Propoxyphene Screen Not Detected (NotDetected) Ur Barbiturates Screen Not Detected (NotDetected) U Tricyclic Antidepress Not Detected (NotDetected) Ur Phencyclidine Scrn Not Detected (NotDetected) Ur Amphetamines Screen Not Detected (NotDetected) U Methamphetamines Scrn Not Detected (NotDetected) U Benzodiazepines Scrn Detected H (NotDetected) Urine Cocaine Screen Not Detected (NotDetected) U Marijuana (THC) Screen Not Detected (NotDetected) Serum Alcohol <10 mg/dL 11/13/19 Range/Units 20:07 WBC (3.8-10.6) k/uL RBC (3.80-5.40) m/uL Hgb (11.4-16.0) gm/dL Hct (34.0-46.0) % MCV (80.0-100.0) fL MCH (25.0-35.0) pg MCHC (31.0-37.0) g/dL RDW (11.5-15.5) % Plt Count (150-450) k/uL Neutrophils % % Lymphocytes % % Monocytes % % Eosinophils % % Basophils % % Neutrophils # (1.3-7.7) k/uL Lymphocytes # (1.0-4.8) k/uL Monocytes # (0-1.0) k/uL Eosinophils # (0-0.7) k/uL Basophils # (0-0.2) k/uL Sodium 140 (137-145) mmol/L Potassium 4.1 (3.5-5.1) mmol/L Chloride 103 (98-107) mmol/L Carbon Dioxide 29 (22-30) mmol/L Anion Gap 8 mmol/L BUN 22 H (7-17) mg/dL Creatinine 1.11 H (0.52-1.04) mg/dL Est GFR (CKD-EPI)AfAm 54 (>60 ml/min/1.73 sqM) Est GFR (CKD-EPI)NonAf 47 (>60 ml/min/1.73 sqM) Glucose 96 (74-99) mg/dL Calcium 10.1 (8.4-10.2) mg/dL Total Bilirubin 0.3 (0.2-1.3) mg/dL AST 22 (14-36) U/L ALT 10 (4-34) U/L Alkaline Phosphatase 88 (38-126) U/L Total Protein 6.8 (6.3-8.2) g/dL Albumin 4.0 (3.5-5.0) g/dL Urine Opiates Screen (NotDetected) Ur Oxycodone Screen (NotDetected) Urine Methadone Screen (NotDetected) Ur Propoxyphene Screen (NotDetected) Ur Barbiturates Screen (NotDetected) U Tricyclic Antidepress (NotDetected) Ur Phencyclidine Scrn (NotDetected) Ur Amphetamines Screen (NotDetected) U Methamphetamines Scrn (NotDetected) U Benzodiazepines Scrn (NotDetected) Urine Cocaine Screen (NotDetected) U Marijuana (THC) Screen (NotDetected) Serum Alcohol mg/dL Disposition Clinical Impression: Dementia Disposition: HOME SELF-CARE Condition: Stable Instructions (If sedation given, give patient instructions): Dementia (ED) Additional Instructions: drink lots of water. Follow-up with primary care provider tomorrow. Return to ER if any worsening symptoms. Is patient prescribed a controlled substance at d/c from ED?: No Referrals: Rosa Bermudez MD [Primary Care Provider] - 1-2 days
== END 2019-11-13 20:43 | disposition home or self-care (01) ==
LOC: EC 17:35
DX: F03.90 Unspecified dementia, unspecified severity, without behavioral disturbance, psychotic disturbance, mood disturbance, and anxiety (principal); I10 Essential (primary) hypertension; Z79.1 Long term (current) use of non-steroidal anti-inflammatories (NSAID); Z79.899 Other long term (current) drug therapy; Z87.891 Personal history of nicotine dependence
CPT/HCPCS: 36415; 80053; 85025; 80306; 99284; G0480; 80320

== ENCOUNTER 2019-11-18 12:19 | Emergency (ER) | payer MEDICARE, OTHER ==
--- NOTE | 2019-11-18 12:29 | ED ---
General Adult HPI - General Stated complaint: fall/hip pain Time Seen by Provider: 11/18/19 12:19 Source: patient, RN notes reviewed, old records reviewed Limitations: altered mental status - History of Present Illness Initial comments: This is an 84-year-old female who presents emergency Department from a half-way. Her baseline orientation is times one. Patient is complaining of right hip pain. It is thought that she may have fallen at the facility but no one witnessed it they found her up against a dresser slowly sliding to the ground with no abrupt trauma. So staff thought maybe she fell earlier was trying to get off when they saw her pushed up against a dresser. Patient is unable to give any history no other history is available this time. - Related Data Home Medications Medication Instructions Recorded Confirmed Meloxicam 15 mg PO DAILY 09/06/19 11/13/19 Memantine [Namenda] 10 mg PO BID 09/06/19 11/13/19 Citalopram Hydrobromide [CeleXA] 20 mg PO DAILY 11/13/19 11/13/19 LORazepam [Ativan] 0.5 mg PO BID@0800,1600 11/13/19 11/13/19 Losartan Potassium [Cozaar] 50 mg PO DAILY 11/13/19 11/13/19 Melatonin 5 mg PO HS 11/13/19 11/13/19 Mirtazapine 15 mg PO HS 11/13/19 11/13/19 Sennosides [Senna] 8.6 mg PO DAILY 11/13/19 11/13/19 Previous Rx's Medication Instructions Recorded amLODIPine [Norvasc] 5 mg PO DAILY tab 09/10/19 Allergies Allergy/AdvReac Type Severity Reaction Status Date / Time No Known Allergies Allergy Verified 11/18/19 12:32 Review of Systems ROS Statement: Those systems with pertinent positive or pertinent negative responses have been documented in the HPI. ROS Other: All systems not noted in ROS Statement are negative. Past Medical History Past Medical History: COPD, Dementia, Hypertension History of Any Multi-Drug Resistant Organisms: None Reported Past Surgical History: Orthopedic Surgery Additional Past Surgical History / Comment(s): neck surgery, hip, arm, knee Past Anesthesia/Blood Transfusion Reactions: No Reported Reaction Past Psychological History: No Psychological Hx Reported Smoking Status: Former smoker Past Alcohol Use History: Rare Past Drug Use History: None Reported General Exam - General Exam Comments Initial Comments: GENERAL: Patient is well-developed and well-nourished. Patient is nontoxic and well- hydrated and is in mild distress. ENT: Neck is soft and supple. No significant lymphadenopathy is noted. Oropharynx is clear. Moist mucous membranes. Neck has full range of motion without eliciting any pain. EYES: The sclera were anicteric and conjunctiva were pink and moist. Extraocular movements were intact and pupils were equal round and reactive to light. Eyelids were unremarkable. PULMONARY: Unlabored respirations. Good breath sounds bilaterally. No audible rales rhonchi or wheezing was noted. CARDIOVASCULAR: There is a regular rate and rhythm without any murmurs gallops or rubs. ABDOMEN: Soft and nontender with normal bowel sounds. No palpable organomegaly was noted. There is no palpable pulsatile mass. SKIN: Skin is clear with no lesions or rashes and otherwise unremarkable. NEUROLOGIC: Patient is alert and oriented x3. Cranial nerves II through XII are grossly intact. Motor and sensory are also intact. Normal speech, volume and content. Symmetrical smile. MUSCULOSKELETAL: Any movement of the right hip also patient pain and palpation of the lateral aspect of the right hip also elicits pain. Patient does not appear to have any obvious trauma any other extremity full range of motion without eliciting any pain. LYMPHATICS: No significant lymphadenopathy is noted PSYCHIATRIC: Normal psychiatric evaluation. Course Vital Signs 11/18/19 12:20 Temperature 97.8 F Pulse Rate 55 L Respiratory 20 Rate Blood Pressure 147/66 O2 Sat by Pulse 100 Oximetry Medical Decision Making - Medical Decision Making C-spine shows no acute abnormality. X-ray of the hip and pelvis showed no acute abnormality. Patient was able to ambulate without problem Disposition Clinical Impression: Right hip pain Disposition: HOME SELF-CARE Condition: Good Instructions (If sedation given, give patient instructions): Fall Prevention (ED), Hip Pain (ED) Is patient prescribed a controlled substance at d/c from ED?: No Referrals: Rosa Bermudez MD [Primary Care Provider] - 1-2 days Time of Disposition: 13:54
--- NOTE | 2019-11-18 13:15 | XR ---
EXAMINATION TYPE: XR Hip RT and AP Pelvis DATE OF EXAM: 11/18/2019 COMPARISON: Prior exam 09/06/2019, prior CT 06/16/2016. HISTORY: Trauma and pain TECHNIQUE: A single AP view of the pelvis is obtained. Two views of the right hip are obtained. FINDINGS: There is no acute fracture/dislocation evident in the pelvis. The hip and sacroiliac join ts appear symmetric and unremarkable. The overlying soft tissue appears unremarkable. There is abdominal aortic aneurysm. Patient is status post right hip arthroplasty is noted on prior exam. There are dense vascular calcif ications noted in aortoiliac distribution. Degenerative disc change present in the lower lumbar spine . Arthropathy noted in the left hip. IMPRESSION: There is no acute fracture or dislocation in the pelvis or right hip. Abdominal aortic aneurysm.
--- NOTE | 2019-11-18 13:48 | XR ---
Cervical spine history: Trauma and pain 5 views of the cervical spine Bone mineralization is reduced. Reversal the normal cervical lordosis may be due to muscle spasm. Cer vical vertebral bodies show preserved height. Loss of disc height is greatest at C5-6, C6-7. Vacuum p henomenon present at the intervertebral level of C5-6. There is associated multilevel spondylosis. Mu ltilevel facet arthropathy changes are present. Foraminal encroachment is present laterally at C5-6, oblique images not optimal to assess the foramina. Patient is edentulous. Is a spinal curvature prese nt. IMPRESSION: Degenerative disc disease and facet arthropathy. No acute fracture or subluxation evident .
[2019-11-18 14:32] VITALS: BP 140/68; PULSE 56; RESP 18; TEMP 98.2
== END 2019-11-18 14:32 | disposition home or self-care (01) ==
LOC: EC 12:19
DX: M25.551 Pain in right hip (principal); I10 Essential (primary) hypertension; F03.90 Unspecified dementia, unspecified severity, without behavioral disturbance, psychotic disturbance, mood disturbance, and anxiety; Z79.899 Other long term (current) drug therapy; Z87.891 Personal history of nicotine dependence; W01.0XXA Fall on same level from slipping, tripping and stumbling without subsequent striking against object, initial encounter; Y92.009 Unspecified place in unspecified non-institutional (private) residence as the place of occurrence of the external cause
CPT/HCPCS: 72050; 73502; 99284